=== PATIENT | male | born 1995 | race Hispanic/Latino ===

== ENCOUNTER 2024-03-23 15:47 | Emergency (ER) | payer OTHER, SELFPAY ==
[2024-03-23] MEDS ORDERED: Boostrix 0.5 ML (Tdap) VIAL (>/=7 yrs of age) ONE (16:31)
== END 2024-03-23 16:31 | disposition home or self-care (01) ==
LOC: CSHERS 15:47
DX: S00.83XA Contusion of other part of head, initial encounter (principal); S50.311A Abrasion of right elbow, initial encounter; X58.XXXA Exposure to other specified factors, initial encounter
CPT/HCPCS: 90471; 90715; 93005; 93010